=== PATIENT | male | born 1950 ===

== ENCOUNTER 2018-10-08 11:21 | Emergency (ER) | payer MEDICARE ==
[2018-10-08 11:31] VITALS: BMI 27.4
[2018-10-08 12:25] LABS: INFLUENZA A B POS FOR INFLUENZA A (NEGATIVE)
--- NOTE | 2018-10-08 12:36 | C.PDOC ---
History Of Present Illness 67 y/o male, with history of gout, presents to ED today with cough, increased nasal secretions, sore throat, and fever that started 3 days ago. Patient notes hes been taking sudafed and tylenol without much relief. Patient also has diffuse body aches but no neck stiffness. He is tolerating solids and clears when he eats. Patent denies any change in his voice. No SOB or chest pain. No rashes. Patient reports he got flu shot. No other complaints. HPI: Influenza Time Seen by Provider: 10/08/18 11:35 Chief Complaint: Flu-like Symptoms History Per: Patient Exam Limitations: no limitations Onset/Duration Of Symptoms: Days Symptoms include: fever, bodyaches, sore throat, cough, nasal congestion Past Medical History Reviewed: Historical Data, Nursing Documentation, Vital Signs Vital Signs: Last Vital Signs Temp 103 F H 10/08/18 11:31 Pulse 119 H 10/08/18 11:31 Resp 18 10/08/18 11:31 BP 151/75 H 10/08/18 11:31 Pulse Ox 95 10/08/18 11:31 Surgical History: Appendectomy Family History: States: No Known Family Hx - Social History Hx Alcohol Use: No Hx Substance Use: No - Immunization History Hx Tetanus Toxoid Vaccination: No Hx Influenza Vaccination: No Hx Pneumococcal Vaccination: No Review Of Systems Constitutional: Positive for: Fever, Chills, Other (Bodyaches). Negative for: Sweats, Weakness, Malaise, Weight loss Eyes: Negative for: Pain, Vision Change, Conjunctivae Inflammation, Eyelid Inflammation, Redness ENT: Positive for: Nose Congestion. Negative for: Ear Pain, Ear Discharge, Nose Pain, Mouth Pain, Mouth Swelling, Throat Pain, Throat Swelling Cardiovascular: Negative for: Chest Pain, Palpitations, Orthopnea, Edema Respiratory: Negative for: Cough, Shortness of Breath, Hemoptysis, Wheezing Gastrointestinal: Negative for: Nausea, Vomiting, Abdominal Pain, Diarrhea, Constipation, Melena, Hematochezia, Rectal Pain Genitourinary: Negative for: Dysuria, Frequency, Incontinence, Hematuria, Penile Discharge, Scrotal Pain, Rash Musculoskeletal: Negative for: Neck Pain, Shoulder Pain, Arm Pain, Back Pain Skin: Negative for: Rash, Lesions, Jaundice Neurological: Negative for: Weakness, Numbness Physical Exam - Physical Exam Appears: Well, Non-toxic, No Acute Distress Skin: Warm, Dry Head: Atraumatic, Normacephalic Eye(s): bilateral: Normal Inspection, PERRL Ear(s): Bilateral: Normal Nose: No Flaring, No Discharge, Other (Nasal congestion) Oral Mucosa: Moist Tongue: Normal Appearing, No Swelling, No Lesions Lips: Normal Appearing, No Swelling, No Contusion Teeth: Normal Dentition, No Caries, No Edentulous Gingiva: Normal Appearing Neck: Normal, Normal ROM, No Decreased ROM, Trachea Midline, Supple, Other (No meningeal signs) Lymphatic: Normal Exam, No Adenopathy Chest: Symmetrical, No Deformity, No Tenderness Cardiovascular: Rhythm Regular (tachy), No Murmur Respiratory: Normal Breath Sounds, No Rales, No Rhonchi, No Wheezing Gastrointestinal/Abdominal: Normal Exam, Soft, No Tenderness, No Organomegaly, No Mass, No Distention, No Guarding Back: Normal Inspection, No CVA Tenderness, No Vertebral Tenderness, No Decreased ROM, No Muscle Spasm, No Paraspinal Tenderness Extremity: Normal ROM, No Tenderness, No Calf Tenderness, No Swelling Extremity: Bilateral: Atraumatic, Normal Color And Temperature Neurological/Psych: Oriented x3, Normal Speech, Normal Cognition, Normal Motor Gait: Steady Medical Decision Making Medical Decision Makin yr old male w/ hx of gout p/w nasal congestion, fever, body aches, sore throat. No difficulty swallowing or change in phonation. No neck stiffness of meningeal signs. No rashes. no abnl noted on orophayrngeal exam, uvula midline w/ out massess or erythema noted. No fall or trauma. No FND. Normal neuro exam. Well appearing overall in NAD Flu vs viral URI vs pneumonia Plan: --Chest XR --Tylenol PO --Flu Swab --Rapid Strep Patient is positive flu A. Pt remained well appearing throughout visit was given additional motrin for fever defervesence given overall well appearance, Flu+, CXR negative and no urinary complaints / meningeal signs / headache / abd pain or rashes clear for d/c home with return indications and followup. Pt agreeable to plan. - ECG O2 Sat by Pulse Oximetry: 95 (RA) Pulse Ox Interpretation: Normal Disposition - Disposition Referrals: [facility] [Outside] [facility] [Outside] [facility] [Outside] Disposition: HOME/ ROUTINE Disposition Time: 13:11 Condition: GOOD Additional Instructions: DARIEL EVANS, thank you for letting us take care of you today. Your provider was Ced Bedoya and you were treated for FLU. The emergency medical care you received today was directed at your acute symptoms. If you were prescribed any medication, please fill it and take as directed. It may take several days for your symptoms to resolve. Return to the Emergency Department if your symptoms worsen, do not improve, or if you have any other problems. Please contact your doctor or call one of the physicians/clinics you have been referred to that are listed on the Patient Visit Information form that is included in your discharge packet. Bring any paperwork you were given at discharge with you along with any medications you are taking to your follow up visit. Our treatment cannot replace ongoing medical care by a primary care provider outside of the emergency department. Thank you for allowing the [facility] team to be part of your care today. If you had an X-Ray or CT scan: A Radiologist will review the ED reading if any change in treatment is needed we will contact you. If you had a blood, urine, or wound culture: It will take several days for the results, if any change in treatment is needed we will contact you. If you had an STI test: It will take 48 hours for the results. Please call after 1 week if you have not heard back. Prescriptions: Oseltamivir Cap [Tamiflu] 75 mg PO BID 5 Days #10 cap Instructions: Flu, Adult (DC) Forms: [employer] ([place]) - Clinical Impression Clinical Impression: Influenza - Scribe Statement The provider has reviewed the documentation as recorded by the Jennifer Angulo Provider Attestation: All medical record entries made by the Nancyibjuarez were at my direction and personally dictated by me. I have reviewed the chart and agree that the record accurately reflects my personal performance of the history, physical exam, medical decision making, and the department course for this patient. I have also personally directed, reviewed, and agree with the discharge instructions and disposition.
[2018-10-08 13:21] VITALS: BP 127/76; RESP 19
[2018-10-08 13:47] VITALS: PULSE 93; TEMP 100; O2SAT 97
--- NOTE | 2018-10-08 15:48 | RAD ---
Date of service: 10/08/2018 HISTORY: cough COMPARISON: No prior. TECHNIQUE: Chest PA and lateral FINDINGS: LUNGS: Poor inspiration with low lung volumes and mild bibasilar atelectasis PLEURA: No significant pleural effusion identified. No pneumothorax apparent. CARDIOVASCULAR: Suspect minor aortic atherosclerotic calcification present. Heart appears mildly enlarged. No pulmonary vascular congestion. OSSEOUS STRUCTURES: No significant abnormalities. VISUALIZED UPPER ABDOMEN: Normal. OTHER FINDINGS: None. IMPRESSION: Poor inspiration with low lung volumes and mild bibasilar atelectasis
== END 2018-10-08 13:47 | disposition home or self-care (01) ==
LOC: C.ER 11:21
DX: J11.1 Influenza due to unidentified influenza virus with other respiratory manifestations (principal)